=== PATIENT | male | born 1960 | race Caucasian/White ===

== ENCOUNTER 2022-04-10 22:15 | Emergency (ER) | payer BC ==
[2022-04-10] MEDS ORDERED: TRANDATE 20 MG/4 ML SYRINGE IV ONE ×3 (22:31→23:59)
[2022-04-10 22:56] LABS: Absolute Neutrophil Ct (ANC) 2.47 x10^3/uL (1.4-6.9); Basophil (Absolute #) 0.05 x10^3/uL (0-0.4); Eosinophil % 4.2 % (0.00-5.0); Eosinophil (Absolute #) 0.26 x10^3/uL (0-0.5); Hematocrit 36.8 % (42-50); Hemoglobin 13.3 g/dL (12.5-18.0); Lymphocyte (Absolute #) 2.77 x10^3/uL (1.0-4.6); Lymphocytes % 45.3 % (24.0-44.0); Mean Cell Volume 85.2 fL (78-100); Mean Corpuscular Hemoglobin 30.8 pg (26-32); Mean Corpuscular Hgb Concent. 36.1 g/dL (32-36); Mean Platelet Volume 9.4 fL (7.5-11.0); Monocyte (Absolute #) 0.56 x10^3/uL (0.0-1.3); Monocytes % 9.2 % (0.0-12.0); Neutrophil % 40.3 % (36.0-66.0); Platelet Count 205 x10^3/uL (150-450); Red Blood Count 4.32 x10^6/uL (4.1-5.6); Red Cell Distribution Width 11.9 % (11.5-14.0); White Blood Count 6.1 x10^3/uL (4.0-10.5)
[2022-04-10 23:10] LABS: ALBUMIN 4.2 g/dL (3.5-5.0); ALKALINE PHOSPHATASE 61 U/L (38-126); ANION GAP 8.3 MEQ/L (5-15); BLOOD UREA NITROGEN 15 mg/dL (9-20); CHLORIDE 106 mmol/L (98-107); Calcium 9.1 mg/dL (8.4-10.2); Carbon Dioxide 26 mmol/L (22-30); Creatinine 1 0.65 mg/dL (0.66-1.25); EST GLOMERULAR FILTRATION RATE > 60.0 ML/MIN; Glucose 184 mg/dL (74-106); MAGNESIUM 1.4 mg/dL (1.6-2.3); Potassium 3.7 mmol/L (3.5-5.1); SGOT/AST 25 U/L (17-59); SGPT/ALT 22 U/L (0-50); SODIUM 137 mmol/L (137-145); Total Protein 6.8 g/dL (6.3-8.2)
[2022-04-10] MEDS ORDERED: Magnesium 1 Gm / 100 Ml D5W*** 100 ML IV SCH (23:45)
[2022-04-10] MEDS ORDERED: MAGNESIUM SULF 2 G/50 ML BAG 2 GM/50 ML PIGGYBACK IV ONE ×2 (23:51→23:54)
--- NOTE | 2022-04-11 02:02 | ERPHSYRPT ---
- History of Present Illness Time Seen by Provider: 04/10/22 22:28 Source: patient Exam Limitations: no limitations Patient Subjective Stated Complaint: Patient states " I have been having HUBER and checked by B/P and it was 206/109 even after I have taken my medication." Triage Nursing Assessment: Patient A/O times 4. Patient able to follow instruc tions without difficulty. Patient stated his B/P has been up last couple of days. Patient states this has happened before. Patient denies any recent increase in stress. Denies any dizziness. Does complain of intermittent HUBER last couple of days. Patient states he did take his B/P meds lisinipril and Metoprolol today but states he does forget to take sometimes. Denies any N/V. Denies any loose stools. Denies any fever or chills. Denies any ABD pain or pain or burning upon urination. Neuro-checks WNL. Bilateral pupils brisk and equal. Denies any recent fall or trauma Physician History: 62yo M w/ PMH of HTN, HLD, DMII and CAD w/ hx of stent presents to the emergency department complaining of high blood pressure. Patient is otherwise asymptomatic without confusion, chest pain, hematuria, or SOB. Patient takes Lisinopril QD and Metoprolol BID. He reports taking his me dications most days. Doubt CV, AMI, heart failure, renal infarction or failure or other end organ d amage. Timing/Duration: today Modifying Factors: Improves With: nothing Associated Symptoms: headaches, No nausea, No abdominal pain, No shortness of breath, No diaphoresis, No chest pain Allergies/Adverse Reactions: No Known Drug Allergies Allergy (Unverified 04/10/22 22:24) Hx Tetanus, Diphtheria Vaccination/Date Given: No Hx Influenza Vaccination/Date Given: No Hx Pneumococcal Vaccination/Date Given: No Immunizations Up to Date: Yes Travel Risk - International Travel Have you traveled outside of the country in past 3 weeks: No - Coronavirus Screening Are you exhibiting any of the following symptoms?: No Close contact with a COVID-19 positive Pt in past 14-21 Days: No - Vaccine Status Have you recieved a Covid-19 vaccination: No - Review of Systems Constitutional: No Symptoms Eyes: No Vision Changes, No Double Vision Respiratory: No Symptoms Cardiac: No Chest Pain, No Edema, No Palpitations, No Syncope Abdominal/Gastrointestinal: No Abdominal Pain, No Nausea Skin: No Symptoms Neurological: Headache Endocrine: No Symptoms Hematologic/Lymphatic: No Symptoms - Past Medical History Pertinent Past Medical History: Yes Neurological History: No Pertinent History ENT History: No Pertinent History Cardiac History: Hypertension Respiratory History: No Pertinent History Endocrine Medical History: Diabetes Type II Musculoskeletal History: No Pertinent History GI Medical History: GERD History: No Pertinent History Psycho-Social History: No Pertinent History Male Reproductive Disorders: No Pertinent History - Past Surgical History Past Surgical History: Yes Neuro Surgical History: No Pertinent History Cardiac: No Pertinent History Respiratory: No Pertinent History Gastrointestinal: No Pertinent History Genitourinary: No Pertinent History Musculoskeletal: Orthopedic Surgery Male Surgical History: No Pertinent History - Social History Smoking Status: Never smoker Exposure to second hand smoke: No Drug Use: none Patient Lives Alone: No - Nursing Vital Signs Nursing Vital Signs: Initial Vital Signs Temperature 97.4 F 04/10/22 22:16 Pulse Rate 81 04/10/22 22:16 Respiratory Rate 20 04/10/22 22:16 Blood Pressure 199/119 04/10/22 22:16 O2 Sat by Pulse Oximetry 99 04/10/22 22:16 Pain Scale Pain Intensity 0 - Physical Exam General Appearance: no apparent distress Eye Exam: PERRL/EOMI Neck Exam: normal inspection, non-tender, supple, full range of motion Respiratory Exam: normal breath sounds, lungs clear, No chest tenderness, No respiratory distress Cardiovascular Exam: regular rate/rhythm, normal heart sounds, No murmur, No friction rub, No gallop, No edema Gastrointestinal/Abdomen Exam: soft, No tenderness, No guarding, No rebound Back Exam: No CVA tenderness Neurologic Exam: alert, oriented x 3, cooperative Skin Exam: normal color SpO2 Interpretation: normal SpO2: 97 O2 Delivery: Room Air - Course EKG Interpreted by Me: RATE ([id number]), Sinus Rhythm, NORMAL AXIS, NORMAL INTERVALS, NORMAL QRS, Other (LAFB) Ordered Tests: Active Orders 24 hr Category Date Time Status Mining Analyst STAT Care 04/10/22 22:32 Active EKG-ER Only STAT Care 04/10/22 22:31 Active IV Insertion STAT Care 04/10/22 22:31 Active CBC W DIFF Stat Lab 04/10/22 22:53 Completed CMP Stat Lab 04/10/22 22:53 Completed MAGNESIUM Stat Lab 04/10/22 22:53 Completed TROPONIN Q4H Lab 04/10/22 22:53 Completed TROPONIN Q4H Lab 04/11/22 02:45 Ordered TROPONIN Q4H Lab 04/11/22 06:45 Ordered Medication Summary Discontinued Medications Generic Name Dose Route Start Last Admin Trade Name Freq PRN Reason Stop Dose Admin Magnesium Sulfate/Dextrose 100 mls @ 100 mls/hr 04/10/22 23:45 04/11/22 00:06 Magnesium 1 Gm / 100 Ml D5w IV 04/11/22 01:44 Not Given Q1H KASSI Magnesium Sulfate/Water Confirm 04/10/22 23:51 Magnesium Sulf 2 G/50 Ml Bag Administered 04/10/22 23:52 Dose 2 gm in 50 mls @ ud IV .STK-MED ONE Magnesium Sulfate/Water 2 gm in 50 mls @ 100 mls/hr 04/10/22 23:54 04/11/22 01:08 Magnesium Sulf 2 G/50 Ml Bag IV 04/11/22 00:23 Infused ONCE ONE Infusion Labetalol HCl 10 mg 04/10/22 22:31 04/10/22 22:52 Labetalol Hcl 20 Mg/4 Ml Disp.Syringe IV 04/10/22 22:32 10 mg STAT ONE Administration Labetalol HCl Confirm 04/10/22 22:51 Labetalol Hcl 20 Mg/4 Ml Disp.Syringe Administered 04/10/22 22:52 Dose 20 mg IV .STK-MED ONE Labetalol HCl 10 mg 04/10/22 23:59 04/11/22 00:00 Labetalol Hcl 20 Mg/4 Ml Disp.Syringe IV 04/11/22 00:00 10 mg STAT ONE Administration Lab/Rad Data: Laboratory Result Diagrams 04/10/22 22:53 04/10/22 22:53 Laboratory Results 04/10/22 04/10/22 04/10/22 Range/Units 22:53 22:53 22:53 WBC 6.1 (4.0-10.5) x10^3/uL RBC 4.32 (4.1-5.6) x10^6/uL Hgb 13.3 (12.5-18.0) g/dL Hct 36.8 L (42-50) % MCV 85.2 (78-100) fL MCH 30.8 (26-32) pg MCHC 36.1 H (32-36) g/dL RDW 11.9 (11.5-14.0) % Plt Count 205 (150-450) x10^3/uL MPV 9.4 (7.5-11.0) fL Gran % 40.3 (36.0-66.0) % Immature Gran % (Auto) 0.2 (0.00-0.4) % Nucleat RBC Rel Count 0.0 (0.00-0.1) % Eos # (Auto) 0.26 (0-0.5) x10^3/uL Immature Gran # (Auto) 0.01 (0.00-0.03) x10^3u/L Absolute Lymphs (auto) 2.77 (1.0-4.6) x10^3/uL Absolute Monos (auto) 0.56 (0.0-1.3) x10^3/uL Absolute Nucleated RBC 0.00 (0.00-0.01) x10^3u/L Lymphocytes % 45.3 H (24.0-44.0) % Monocytes % 9.2 (0.0-12.0) % Eosinophils % 4.2 (0.00-5.0) % Basophils % 0.8 (0.0-0.4) % Absolute Granulocytes 2.47 (1.4-6.9) x10^3/uL Basophils # 0.05 (0-0.4) x10^3/uL Sodium 137 (137-145) mmol/L Potassium 3.7 (3.5-5.1) mmol/L Chloride 106 (98-107) mmol/L Carbon Dioxide 26 (22-30) mmol/L Anion Gap 8.3 (5-15) MEQ/L BUN 15 (9-20) mg/dL Creatinine 0.65 L (0.66-1.25) mg/dL Estimated GFR > 60.0 ML/MIN Glucose 184 H (74-106) mg/dL Calcium 9.1 (8.4-10.2) mg/dL Magnesium 1.4 L (1.6-2.3) mg/dL Total Bilirubin 0.60 (0.2-1.3) mg/dL AST 25 (17-59) U/L ALT 22 (0-50) U/L Alkaline Phosphatase 61 (38-126) U/L Troponin I < 0.012 (0.000-0.034) ng/mL Serum Total Protein 6.8 (6.3-8.2) g/dL Albumin 4.2 (3.5-5.0) g/dL - Progress Progress: improved Progress Note: 04/11/22 02:21 Patient's blood pressure improved 150s/80s after 20 mg of labetalol. He continues to deny any chest pain, palpitations, shortness of breath. His headache is improved. Repeat EKG similar to previous. Initial troponin negative. Patient reports feeling improvement after getting magnesium. Will see patient in: office Counseled pt/family regarding: lab results, need for follow-up - Departure Clinical Impression: Hypertensive urgency, Hypomagnesemia Condition: Stable Critical Care Time: No Referrals: KIESHA TAMEZ MD [Primary Care Provider] - Follow Up with PCP/3 days Instructions: Malignant Hypertension (DC) Additional Instructions: Disposition: Discussed with patient their elevated blood pressure and need for close outpatient management of their hypertension. Will arrange for the patient to follow up in a primary care clinic. He reports having home BP meds at home and doesn't need refills.
[2022-04-11 02:44] VITALS: BP 148/89; PULSE 79; O2SAT 96
== END 2022-04-11 02:38 | disposition home or self-care (01) ==
LOC: ED 22:15
DX: I16.0 Hypertensive urgency (principal); I10 Essential (primary) hypertension; E83.42 Hypomagnesemia; R51.9 Headache, unspecified; E78.5 Hyperlipidemia, unspecified; E11.9 Type 2 diabetes mellitus without complications; Z28.310 Unvaccinated for COVID-19
CPT/HCPCS: 36000; 36415; 80053; 83735; 84484; 85025; 93005; 93041; 96365; 96374; 96376; 99284; J3475

== ENCOUNTER 2022-12-02 03:27 | Emergency (ER) | payer OTHER ==
--- NOTE | 2022-12-02 04:13 | ERPHSYRPT ---
- History of Present Illness Historian: patient, family Exam Limitations: no limitations Timing/Duration: yesterday Activities at Onset: other (eating and drinking) Quality: burning, sharpness Abdominal Pain Onset Location: epigastric Pain Radiation: epigastric Severity of Pain-Max: moderate Severity of Pain-Current: moderate Modifying Factors: Improves With: eating Associated Symptoms: diaphoresis, nausea Previous symptoms: no prior history Hx Tetanus, Diphtheria Vaccination/Date Given: No Hx Influenza Vaccination/Date Given: No Hx Pneumococcal Vaccination/Date Given: No <SARANYA RAMÍREZ - Last Filed: 12/02/22 05:43> <LIZZY ARVIZU - Last Filed: 12/02/22 06:38> - History of Present Illness Time Seen by Provider: 12/02/22 04:08 Physician History: Pt has been taking Cyanne pepper as a medical therapy and went off his BP meds and seemed to be doing OK but last 2 days has pain with swallowing including even water. No vomiting. Hx is notable for CAD requiring one stent and no recurring symptoms and this feels different from ht to him and also radiates into the abdomen. Chest clear. Ht reg without M. Abd soft nontender without peritoneal signs or distension. Hx independently collaborated with as separate source in ER. Discussed risks/benefits of testing including CT chest, CBC, CMP, Lactate, Lipase, Trops EKG with pt and and they wish to proceed, these were ordered and then results discussed with pt and . Pepcid, zofran and prilosec all discussed with risks/benefit and pt and wish to proceed. (SARANYA RAMÍREZ) Allergies/Adverse Reactions: No Known Drug Allergies Allergy (Verified 12/02/22 03:46) Travel Risk - Vaccine Status Have you recieved a Covid-19 vaccination: No <SARANYA RAMÍREZ - Last Filed: 12/02/22 05:43> - Review of Systems Constitutional: No Fever, No Chills Eyes: No Symptoms Ears, Nose, & Throat: No Symptoms Respiratory: No Cough, No Dyspnea Cardiac: No Chest Pain, No Edema, No Syncope Abdominal/Gastrointestinal: Abdominal Pain, Nausea, No Vomiting, No Diarrhea Genitourinary Symptoms: No Dysuria Musculoskeletal: No Back Pain, No Neck Pain Skin: No Rash Neurological: No Dizziness, No Focal Weakness, No Sensory Changes Psychological: No Symptoms Endocrine: No Symptoms Hematologic/Lymphatic: No Symptoms Immunological/Allergic: No Symptoms All Other Systems: Reviewed and Negative <SARANYA RAMÍREZ Filed: 12/02/22 05:43> - Past Medical History Pertinent Past Medical History: Yes Neurological History: No Pertinent History ENT History: No Pertinent History Cardiac History: Hypertension Respiratory History: No Pertinent History Endocrine Medical History: Diabetes Type II Musculoskeletal History: No Pertinent History GI Medical History: GERD History: No Pertinent History Psycho-Social History: No Pertinent History Male Reproductive Disorders: No Pertinent History - Past Surgical History Past Surgical History: Yes Neuro Surgical History: No Pertinent History Cardiac: No Pertinent History Respiratory: No Pertinent History Gastrointestinal: No Pertinent History Genitourinary: No Pertinent History Musculoskeletal: Orthopedic Surgery Male Surgical History: No Pertinent History - Social History Smoking Status: Never smoker Exposure to second hand smoke: No Drug Use: none Patient Lives Alone: No <SARANYA RAMÍREZ Filed: 12/02/22 05:43> - Physical Exam General Appearance: no apparent distress, alert Eye Exam: PERRL/EOMI, eyes nml inspection Ears, Nose, Throat Exam: normal ENT inspection, pharynx normal, moist mucous membranes Neck Exam: normal inspection, non-tender, supple, full range of motion Respiratory Exam: normal breath sounds, lungs clear, No respiratory distress Cardiovascular Exam: regular rate/rhythm, normal heart sounds Gastrointestinal/Abdomen Exam: soft, No tenderness, No mass Back Exam: normal inspection, normal range of motion, No CVA tenderness, No vertebral tenderness Extremity Exam: normal inspection, normal range of motion, pelvis stable Neurologic Exam: alert, oriented x 3, cooperative, normal mood/affect, nml cerebellar function, sensation nml, No motor deficits Skin Exam: normal color, warm, dry SpO2 Interpretation: normal SpO2: 97 O2 Delivery: Room Air <MAGALIE RAMÍREZNETH GEOVANNI [place] Filed: 12/02/22 05:43> - Nursing Vital Signs Nursing Vital Signs: Initial Vital Signs Temperature 99.1 F 12/02/22 03:51 Pulse Rate 83 12/02/22 03:51 Respiratory Rate 20 12/02/22 03:51 Blood Pressure 133/105 12/02/22 03:51 O2 Sat by Pulse Oximetry 100 12/02/22 03:51 Pain Scale Pain Intensity 6 - Course Nursing assessment & vital signs reviewed: Yes EKG Interpreted by Me: Sinus Rhythm, LAFB, NORMAL INTERVALS, Non-specific ST Changes <SARANYA RAMÍREZ - Last Filed: 12/02/22 05:43> Ordered Tests: Active Orders 24 hr Category Date Time Status EKG-ER Only STAT Care 12/02/22 04:14 Active IV Insertion STAT Care 12/02/22 04:14 Active CHEST WITHOUT CONTRAST [CT] Stat Exams 12/02/22 04:15 Completed CBC W DIFF Stat Lab 12/02/22 04:39 Completed CMP Stat Lab 12/02/22 04:39 Completed LIPASE Stat Lab 12/02/22 04:39 Completed Lactic Acid Stat Lab 12/02/22 04:50 Completed POCT GLUCOSE Stat Lab 12/02/22 03:56 Completed TROPONIN Q4H Lab 12/02/22 04:39 Completed TROPONIN Q4H Lab 12/02/22 08:15 Ordered TROPONIN Q4H Lab 12/02/22 12:15 Ordered Medication Summary Generic Name Dose Route Start Last Admin Trade Name Freq PRN Reason Stop Dose Admin Sodium Chloride 1,000 mls @ 100 mls/hr 12/02/22 04:15 12/02/22 04:43 Sodium Chloride 0.9% 1000 Ml IV 01/01/23 04:14 100 mls/hr .Q10H KASSI Administration Discontinued Medications Generic Name Dose Route Start Last Admin Trade Name Freq PRN Reason Stop Dose Admin Famotidine 20 mg 12/02/22 04:14 12/02/22 04:43 Famotidine 20 Mg/1 Vial IV 12/02/22 04:15 20 mg STAT ONE Administration Famotidine Confirm 12/02/22 04:39 Famotidine 20 Mg/1 Vial Administered 12/02/22 04:40 Dose 20 mg IV .STK-MED ONE Sodium Chloride 1,000 mls @ 999 mls/hr 12/02/22 05:16 Sodium Chloride 0.9% 1000 Ml IV 12/02/22 06:16 .Q1H1M STA Magnesium Hydroxide 45 ml 12/02/22 06:16 Mag Hydrx/Alum Hyd/Simeth/Lido 45 Ml Bottle PO 12/02/22 06:17 STAT ONE Ondansetron HCl 4 mg 12/02/22 04:14 12/02/22 04:43 Ondansetron Hcl 4 Mg/2 Ml Vial IV 12/02/22 04:15 4 mg STAT ONE Administration Ondansetron HCl Confirm 12/02/22 04:39 Ondansetron Hcl 4 Mg/2 Ml Vial Administered 12/02/22 04:40 Dose 4 mg .ROUTE .STK-MED ONE Pantoprazole Sodium 40 mg 12/02/22 04:14 12/02/22 04:43 Pantoprazole 40 Mg Vial IV 12/02/22 04:15 40 mg STAT ONE Administration Pantoprazole Sodium Confirm 12/02/22 04:39 Pantoprazole 40 Mg Vial Administered 12/02/22 04:40 Dose 40 mg IV .STK-MED ONE Lab/Rad Data: Laboratory Result Diagrams 12/02/22 04:39 12/02/22 04:39 Laboratory Results 12/02/22 12/02/22 12/02/22 Range/Units 04:50 04:39 04:39 WBC (4.0-10.5) x10^3/uL RBC (4.1-5.6) x10^6/uL Hgb (12.5-18.0) g/dL Hct (42-50) % MCV (78-100) fL MCH (26-32) pg MCHC (32-36) g/dL RDW (11.5-14.0) % Plt Count (150-450) x10^3/uL MPV (7.5-11.0) fL Gran % (36.0-66.0) % Immature Gran % (Auto) (0.00-0.4) % Nucleat RBC Rel Count (0.00-0.1) % Eos # (Auto) (0-0.5) x10^3/uL Immature Gran # (Auto) (0.00-0.03) x10^3u/L Absolute Lymphs (auto) (1.0-4.6) x10^3/uL Absolute Monos (auto) (0.0-1.3) x10^3/uL Absolute Nucleated RBC (0.00-0.01) x10^3u/L Lymphocytes % (24.0-44.0) % Monocytes % (0.0-12.0) % Eosinophils % (0.00-5.0) % Basophils % (0.0-0.4) % Absolute Granulocytes (1.4-6.9) x10^3/uL Basophils # (0-0.4) x10^3/uL Sodium 134 L (137-145) mmol/L Potassium 5.2 H (3.5-5.1) mmol/L Chloride 97 L (98-107) mmol/L Carbon Dioxide 23 (22-30) mmol/L Anion Gap 19.1 H (5-15) MEQ/L BUN 11 (9-20) mg/dL Creatinine 0.92 (0.66-1.25) mg/dL Estimated GFR > 60.0 ML/MIN Glucose 304 H (74-106) mg/dL POC Glucometer (74 to 106) mg/dL Lactic Acid 2.1 H (0.4-2.0) Calcium 9.8 (8.4-10.2) mg/dL Total Bilirubin 1.70 H (0.2-1.3) mg/dL AST 21 (17-59) U/L ALT 22 (0-50) U/L Alkaline Phosphatase 97 (38-126) U/L Troponin I < 0.012 (0.000-0.034) ng/mL Serum Total Protein 7.5 (6.3-8.2) g/dL Albumin 4.7 (3.5-5.0) g/dL Lipase 34 (23-300) U/L 12/02/22 12/02/22 Range/Units 04:39 03:56 WBC 13.8 H (4.0-10.5) x10^3/uL RBC 5.18 (4.1-5.6) x10^6/uL Hgb 15.8 (12.5-18.0) g/dL Hct 44.0 (42-50) % MCV 84.9 (78-100) fL MCH 30.5 (26-32) pg MCHC 35.9 (32-36) g/dL RDW 11.6 (11.5-14.0) % Plt Count 207 (150-450) x10^3/uL MPV 9.4 (7.5-11.0) fL Gran % 81.5 H (36.0-66.0) % Immature Gran % (Auto) 0.4 (0.00-0.4) % Nucleat RBC Rel Count 0.0 (0.00-0.1) % Eos # (Auto) 0.09 (0-0.5) x10^3/uL Immature Gran # (Auto) 0.05 H (0.00-0.03) x10^3u/L Absolute Lymphs (auto) 1.34 (1.0-4.6) x10^3/uL Absolute Monos (auto) 1.01 (0.0-1.3) x10^3/uL Absolute Nucleated RBC 0.00 (0.00-0.01) x10^3u/L Lymphocytes % 9.7 L (24.0-44.0) % Monocytes % 7.3 (0.0-12.0) % Eosinophils % 0.7 (0.00-5.0) % Basophils % 0.4 (0.0-0.4) % Absolute Granulocytes 11.21 H (1.4-6.9) x10^3/uL Basophils # 0.06 (0-0.4) x10^3/uL Sodium (137-145) mmol/L Potassium (3.5-5.1) mmol/L Chloride (98-107) mmol/L Carbon Dioxide (22-30) mmol/L Anion Gap (5-15) MEQ/L BUN (9-20) mg/dL Creatinine (0.66-1.25) mg/dL Estimated GFR ML/MIN Glucose (74-106) mg/dL POC Glucometer 303 H (74 to 106) mg/dL Lactic Acid (0.4-2.0) Calcium (8.4-10.2) mg/dL Total Bilirubin (0.2-1.3) mg/dL AST (17-59) U/L ALT (0-50) U/L Alkaline Phosphatase (38-126) U/L Troponin I (0.000-0.034) ng/mL Serum Total Protein (6.3-8.2) g/dL Albumin (3.5-5.0) g/dL Lipase (23-300) U/L - Progress Progress: improved, re-examined Counseled pt/family regarding: lab results, diagnosis, need for follow-up, rad results <SARANYA RAMÍREZ - Last Filed: 12/02/22 05:43> <LIZZY ARVIZU - Last Filed: 12/02/22 06:38> - Progress Progress Note: 12/02/22 05:[address] reading then plan, if CT negative and labs ,is for oral PO challenge with lidocaine if needed and outpt f/u for scoping and f/u PCP for meds if po tolerated in ER. Discussed with Dr. Arvizu pending labs and reading and above and turned over at change of shift for final disposition and treatment. pt is also advised that although the symptoms fit an esophageal scenario, there could still be cardiac pathology undetected even with negative trops, and there is the need for that followup and workup as well - pt and voice their understanding of this, and if all labs are eventually OK and he can swallow , they prefer outpt f/u rather than in house or admission but again this is subject to tolerating PO and no serious findings on CT or other labs - they have the capacity to make this choice. He is feeling better after the treatment so far. . 12/02/22 05:53 (SARANYA RAMÍREZ) 12/02/22 06:29 Patient and his prefer outpatient follow-up rather than in-house admission or transfer to another facility. We will provide the patient with a GI cocktail. If his symptoms improve and he is tolerating oral intake we will dis charge him to home with viscous lidocaine and/or Carafate prescription. CT scan of the chest without contrast shows mild diffuse thickening of the esophagus possibly due to underdistention. No other acute findings noted per radiology interpretation. (LIZZY ARVIZU) Medical Desision Making - Independent Historian Additional History obtained from: Spouse - Discussion of managment Reviewed:: Test results, Need for additional workup - Diagnostic Testing Diagnostic test were ordered, analyzed, and reviewed by me: Yes Radiological Interpretation: Reviewed by me, Teleradiologist Report - Risk of complications The pt has a mod risk of morbidity or mortality based on: Need for prescription drug management The pt has a high risk of morbidity or mortality based on: Decision regarding hospitilization or escalation of hosp level of care <SARANYA RAMÍREZ - Last Filed: 12/02/22 05:43> - Departure Critical Care Time: No <SARANYA RAMÍREZ - Last Filed: 12/02/22 05:43> - Departure Departure Disposition: Home <LIZZY ARVIZU - Last Filed: 12/02/22 06:38> - Departure Clinical Impression: Esophagitis, Dysphagia Condition: Good Referrals: RODY BOBBY MD [Primary Care Provider] - Follow up/PCP as directed Additional Instructions: Drink plenty of clear liquids, full liquids and soft diet. Follow-up with your primary care provider today, 12/02/2022, to arrange a follow-up appointment for further evaluation management including referral to a balance staff staker if indicated. Take your medications as prescribed. Prescriptions: Sucralfate 1000 mg/10 ml [Carafate SUSPENSION 1000 MG/10 ML] 1 gm PO ACHS #200 ml
[2022-12-02] MEDS ORDERED: Zofran 4 MG/2 ML VIAL IV ONE (04:14)
[2022-12-02] MEDS ORDERED: Pepcid 20 MG VIAL IV ONE ×2 (04:14→04:39)
[2022-12-02] MEDS ORDERED: PROTONIX 40 MG IV IV ONE ×2 (04:14→04:39)
[2022-12-02] MEDS ORDERED: Sodium Chloride 0.9% 1000 ML 1,000 ML IV SCH (04:15)
[2022-12-02 04:32] VITALS: TEMP 99.1
[2022-12-02] MEDS ORDERED: Zofran 4 MG/2 ML VIAL ONE (04:39)
[2022-12-02] MEDS ORDERED: Sodium Chloride 0.9% 1000 ML 1,000 ML ONE ×2 (04:39→06:34)
[2022-12-02 04:42] LABS: Absolute Neutrophil Ct (ANC) 11.21 x10^3/uL (1.4-6.9); BASOPHIL % 0.4 % (0.0-0.4); Basophil (Absolute #) 0.06 x10^3/uL (0-0.4); Eosinophil % 0.7 % (0.00-5.0); Eosinophil (Absolute #) 0.09 x10^3/uL (0-0.5); Hemoglobin 15.8 g/dL (12.5-18.0); IMMATURE GRAN # 0.05 x10^3u/L (0.00-0.03); IMMATURE GRAN % 0.4 % (0.00-0.4); Lymphocyte (Absolute #) 1.34 x10^3/uL (1.0-4.6); Lymphocytes % 9.7 % (24.0-44.0); Mean Cell Volume 84.9 fL (78-100); Mean Corpuscular Hemoglobin 30.5 pg (26-32); Mean Corpuscular Hgb Concent. 35.9 g/dL (32-36); Mean Platelet Volume 9.4 fL (7.5-11.0); Monocyte (Absolute #) 1.01 x10^3/uL (0.0-1.3); Monocytes % 7.3 % (0.0-12.0); Neutrophil % 81.5 % (36.0-66.0); Platelet Count 207 x10^3/uL (150-450); Red Blood Count 5.18 x10^6/uL (4.1-5.6); Red Cell Distribution Width 11.6 % (11.5-14.0); White Blood Count 13.8 x10^3/uL (4.0-10.5)
[2022-12-02 04:56] LABS: ALBUMIN 4.7 g/dL (3.5-5.0); ALKALINE PHOSPHATASE 97 U/L (38-126); ANION GAP 19.1 MEQ/L (5-15); BLOOD UREA NITROGEN 11 mg/dL (9-20); CHLORIDE 97 mmol/L (98-107); Calcium 9.8 mg/dL (8.4-10.2); Carbon Dioxide 23 mmol/L (22-30); Creatinine 1 0.92 mg/dL (0.66-1.25); EST GLOMERULAR FILTRATION RATE > 60.0 ML/MIN; Glucose 304 mg/dL (74-106); LIPASE 34 U/L (23-300); Potassium 5.2 mmol/L (3.5-5.1); SGOT/AST 21 U/L (17-59); SGPT/ALT 22 U/L (0-50); SODIUM 134 mmol/L (137-145); Total Protein 7.5 g/dL (6.3-8.2)
[2022-12-02] MEDS ORDERED: Sodium Chloride 0.9% 1000 ML 1,000 ML IV STA (05:16)
--- NOTE | 2022-12-02 05:50 | XRAY ---
CLINICAL HISTORY:chest pain with swallowing liquids COMPARISON:None. TECHNIQUES:Axial sections of CT chest examination were obtained without administration of intravenous contrast. Reformatted coronal and sagittal images were acquired. FINDINGS: Mild diffuse thickening of the esophagus, likely secondary to under distention. If clinically indicated, further evaluation is advised. No consolidation, pleural effusion or pneumothorax. Few subcentimeter mediastinal lymph nodes. Few subcentimeter calcified hilar lymph nodes. Trachea and bronchi are patent. Heart is normal in size. No pericardial effusion. No aneurysmal dilatation of the thoracic aorta. Mild atherosclerotic changes of the thoracic aorta. No discrete chest wall mass. The thyroid gland appears unremarkable. Large cyst measuring approximately 11 x 9 cm likely arising from the left kidney. The rest of the visualized upper abdominal viscera appears grossly unremarkable. Degenerative changes in the visualized spine. IMPRESSION: Mild diffuse thickening of the esophagus, likely secondary to under distention. If clinically indicated, further evaluation is advised. No acute pulmonary abnormality. Electronically Signed by: Fabiola Milian MD. (12/02/2022 04:38:24 SAMPLE WORKER)
[2022-12-02] MEDS ORDERED: GI COCKTAIL 45 ML (Maalox/Lidocaine) PO ONE (06:16)
[2022-12-02 06:33] VITALS: RESP 18
[2022-12-02] MEDS ORDERED: MAALOX ES 30 ML UNIT DOSE ONE (06:34)
[2022-12-02] MEDS ORDERED: XYLOCAINE VISCOUS 2% 15 ML CUP ONE (06:34)
[2022-12-02 07:06] VITALS: BP 114/93
[2022-12-02 07:31] VITALS: PULSE 95; O2SAT 100
== END 2022-12-02 07:29 | disposition home or self-care (01) ==
LOC: ED 03:27
DX: K20.90 Esophagitis, unspecified without bleeding (principal); R13.10 Dysphagia, unspecified; I10 Essential (primary) hypertension; E11.9 Type 2 diabetes mellitus without complications; Z28.310 Unvaccinated for COVID-19
CPT/HCPCS: 36000; 36415; 71250; 80053; 82947; 83605; 83690; 84484; 85025; 93005; 96374; 96375; 99284; J2405; A9270-GY

== ENCOUNTER 2022-12-04 15:11 | Emergency (ER) | payer OTHER ==
[2022-12-04 15:36] VITALS: PULSE 101; RESP 16; TEMP 99.1; O2SAT 98
[2022-12-04] MEDS ORDERED: Hydromorphone 1 mg/ml Injection ONE (15:37)
[2022-12-04] MEDS: Hydromorphone 1 mg/ml Injection IM ONE (15:51)
--- NOTE | 2022-12-04 16:34 | XRAY ---
Indication: Pain following fall 2 days ago. Comparison: None 3 portable views right hand demonstrates mild radiocarpal degenerative joint space narrowing and ulnocarpal degenerative chondrocalcinosis. No other bony, articular, or soft tissue abnormalities.
--- NOTE | 2022-12-04 16:53 | ERPHSYRPT ---
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 pt states he fell 2 days ago after a syncopal episode. PT states pain was not present until yesterday and has had increasing pain up until today when pain reached a 9 and pt felt he needed to be seen Triage Nursing Assessment: TP arrives p/w/d resp easy, a@ox3. Pt can move fingers without difficulty though states pain is severe with movement. Pt has slight swelling noted no obvious deformity noted. CPTS + movement limited Physician History: Patient is a 62-year-old white male who 2 days ago had a syncopal episode. He was seen in the ER and evaluated for the syncope and since it occurred at night while he was going to urinate it was felt this probably represented micturition syncope. When he came to from his syncopal episode he was not able to he also he banged his right hand and wrist to get his 's attention that later became very sore and tender and has remained so. He rates the pain 8 of 10. Occurred: days ago (2) Method of Injury: direct blow Quality: constant, aching Severity of Pain-Max: moderate Severity of Pain-Current: moderate Extremities Pain Location: wrist: right, hand: right Modifying Factors: Improves With: movement Associated Symptoms: none Allergies/Adverse Reactions: No Known Drug Allergies Allergy (Verified 12/02/22 03:46) Hx Tetanus, Diphtheria Vaccination/Date Given: No Hx Influenza Vaccination/Date Given: No Hx Pneumococcal Vaccination/Date Given: No Travel Risk - International Travel Have you traveled outside of the country in past 3 weeks: No - Coronavirus Screening Are you exhibiting any of the following symptoms?: No Close contact with a COVID-19 positive Pt in past 14-21 Days: No - Vaccine Status Have you recieved a Covid-19 vaccination: No - Review of Systems Constitutional: No Fever, No Chills Eyes: No Symptoms Ears, Nose, & Throat: No Symptoms Respiratory: No Cough, No Dyspnea Cardiac: No Chest Pain, No Edema, No Syncope Abdominal/Gastrointestinal: No Abdominal Pain, No Nausea, No Vomiting, No Diarrhea Genitourinary Symptoms: No Dysuria Musculoskeletal: Joint Pain, Joint Swelling, No Back Pain, No Neck Pain Skin: No Rash Neurological: No Dizziness, No Focal Weakness, No Sensory Changes Psychological: No Symptoms Endocrine: No Symptoms All Other Systems: Reviewed and Negative - Past Medical History Pertinent Past Medical History: Yes Neurological History: No Pertinent History ENT History: No Pertinent History Cardiac History: Hypertension Respiratory History: No Pertinent History Endocrine Medical History: Diabetes Type II Musculoskeletal History: No Pertinent History GI Medical History: GERD History: No Pertinent History Psycho-Social History: No Pertinent History Male Reproductive Disorders: No Pertinent History - Past Surgical History Past Surgical History: Yes Neuro Surgical History: No Pertinent History Cardiac: No Pertinent History Respiratory: No Pertinent History Gastrointestinal: No Pertinent History Genitourinary: No Pertinent History Musculoskeletal: Orthopedic Surgery Male Surgical History: No Pertinent History - Social History Smoking Status: Never smoker Exposure to second hand smoke: No Drug Use: none Patient Lives Alone: No - Nursing Vital Signs Nursing Vital Signs: Initial Vital Signs Temperature 99.1 F 12/04/22 15:11 Pulse Rate 101 H 12/04/22 15:11 Respiratory Rate 16 12/04/22 15:11 Blood Pressure 167/98 12/04/22 15:11 O2 Sat by Pulse Oximetry 98 12/04/22 15:11 Pain Scale Pain Intensity 9 - Physical Exam General Appearance: moderate distress Eyes, Ears, Nose, Throat Exam: moist mucous membranes Neck Exam: non-tender, supple Cardiovascular/Respiratory Exam: chest non-tender, normal breath sounds, regular rate/rhythm, no respiratory distress Abdominal Exam: non-tender, No guarding Back Exam: normal inspection, No vertebral tenderness Shoulder Exam: normal inspection, non-tender, no evidence of injury Elbow/Forearm Exam: normal inspection, non-tender, no evidence of injury Wrist Exam: bone tenderness, soft tissue tenderness, swelling Hand Exam: bone tenderness, soft tissue tenderness, stiffness Neuro/Tendon Exam: normal sensation, normal motor functions Mental Status Exam: alert, oriented x 3, cooperative Skin Exam: normal color, warm, dry SpO2 Interpretation: normal SpO2: 98 O2 Delivery: Room Air Procedures - Splinting Time of Procedure: 16:53 Location of Splint: Right, Wrist Type of Splint: Velcro Splint Splint Applied By: ED Nurse Pre-Proc Neuro Vasc Exam: normal Post-Proc Neuro Vasc Exam: neurovascular intact - Radiology Exams Hand X-ray Interpretation: Reviewed by me Wrist X-ray Interpretation: Reviewed by me Ordered Tests: Active Orders 24 hr Category Date Time Status HAND (MINIMUM 3 VIEWS) Stat Exams 12/04/22 15:27 Completed Transfer Order Routine Transfer 12/04/22 Ordered Medication Summary Discontinued Medications Generic Name Dose Route Start Last Admin Trade Name Elizabeth PRN Reason Stop Dose Admin Hydromorphone HCl Confirm 12/04/22 15:37 Hydromorphone 1 Mg/1ml Inj Administered 12/04/22 15:38 Dose 1 mg .ROUTE .STK-MED ONE Hydromorphone HCl 1 mg 12/04/22 15:48 12/04/22 15:51 Hydromorphone 1 Mg/1ml Inj IM 12/04/22 15:49 1 mg STAT ONE Administration - Progress Progress: improved Medical Desision Making - Diagnostic Testing Radiological Interpretation: Reviewed by me - Risk of complications Minimal Risk: Minimal risk of morbidity - Departure Departure Disposition: Home Clinical Impression: Contusion of right wrist Condition: Stable Critical Care Time: No Referrals: RODY BOBBY MD [Primary Care Provider] - Follow up/PCP as directed Prescriptions: Hydrocodone/Acetaminophen [Hydrocodone-Acetamin 5-325 mg] 1 tab PO Q6HPRN PRN 3 Days #12 tablet MDD 4 PRN Reason: Pain Prednisone 10 mg [Deltasone 10 mg] 20 mg PO TID 2 Days #12 tablet
[2022-12-04 16:55] VITALS: BP 156/95
== END 2022-12-04 17:01 | disposition home or self-care (01) ==
LOC: ED 15:11
DX: S60.211A Contusion of right wrist, initial encounter (principal); W22.8XXA Striking against or struck by other objects, initial encounter; I10 Essential (primary) hypertension; E11.9 Type 2 diabetes mellitus without complications; Z79.891 Long term (current) use of opiate analgesic; Z79.52 Long term (current) use of systemic steroids; Z28.310 Unvaccinated for COVID-19
CPT/HCPCS: 73130; 96372; 99283; J1170; L3908